=== PATIENT | female | born 1955 ===

== ENCOUNTER → 2022-07-20 | Outpatient (CLI) | payer MEDICARE, OTHER ==
[~2022-07-20] MED LIST: MACROBID 1100 MG/CAP PO; NORCO 325 MG-51 TAB PO; Probiotic
== END ==
LOC: MC.RAD 12:10 → EDBD 13:00
DX: Z98.82 Breast implant status (principal)
CPT/HCPCS: 32603; C1769

== ENCOUNTER 2022-07-21 05:15 | Day surgery (SDC) | payer MEDICARE, OTHER ==
[~2022-07-21] VITALS: Ht 154.9 cm; Wt 81.5 kg
[2022-07-21] MEDS ORDERED: Probiotic (05:47)
[2022-07-21] MEDS ORDERED: MACROBID 1100 MG/CAP PO (05:47)
[2022-07-21 06:06] VITALS: BP 117/64; PULSE 74; TEMP 98.4
[2022-07-21] MEDS ORDERED: NORCO 325 MG-51 TAB PO (08:23)
[2022-07-21 08:25] VITALS: BP 110/55; PULSE 72; TEMP 97.8
[2022-07-21 08:40] VITALS: BP 112/60; PULSE 62
--- NOTE | 2022-07-21 08:41 | NUR ---
0825 - PT arrives from OR drowsy but oriented; denies current pain. Monitors applied and VSS. Bandage to affected area is clean, dry and intact. Verbal bedside report obtained. Side rails x2, non-slip socks remain on. Snack and drink provided; visitor brought into room per PT request. Call ta is within reach. 0840 - VSS. PT denies nausea/pain. is speaking w/ PT. Call ta remains within reach if needed.
[2022-07-21 08:55] VITALS: BP 136/80; PULSE 64
--- NOTE | 2022-07-21 09:06 | NUR ---
0855 - [facility]. PT expressed desire to be discharged. IV discontinued. Catheter tip intact and pressure bandage applied, no redness/swelling noted. DC instructions and educational material reviewed w/ PT who verbalized understanding and signed the realted paperwork. Questions answered to PT satisfaction. PT refused RN assistance changing into personal clothes; call ta remains within reach if needed. Visitor left to wait in waiting room per PT request.
--- NOTE | 2022-07-21 09:32 | NUR ---
0920 - [place] [facility] [place] Jose to PT entrence; PT visitor has DC packet and the PT has her personal belongings. PT was transferred into the care of , who is driving private car.
== END 2022-07-21 09:30 | disposition home or self-care (01) ==
LOC: SDCO 05:15 → EDBD 07:30 → SDCO 09:30
DX: Z12.11 Encounter for screening for malignant neoplasm of colon (principal); C50.912 Malignant neoplasm of unspecified site of left female breast; N60.92 Unspecified benign mammary dysplasia of left breast; K64.8 Other hemorrhoids; K57.30 Diverticulosis of large intestine without perforation or abscess without bleeding; I10 Essential (primary) hypertension; F17.210 Nicotine dependence, cigarettes, uncomplicated
CPT/HCPCS: 19301; G0121; A4648; J0690; J1100; J2250; J2704; J2795; J7120